=== PATIENT | male | born 1955 | race Caucasian/White ===

== ENCOUNTER 2016-06-28 09:20 | Emergency (ER) | payer OTHER ==
[~2016-06-28] VITALS: Ht 180.3 cm; Wt 100.0 kg
[2016-06-28] MEDS ORDERED: OMEPRAZOLE40 M1 PO (10:06)
[2016-06-28] MEDS ORDERED: VENLAFAXINE HCL75 M3 PO (10:06)
[2016-06-28 10:31] LABS: EOSINOPHIL (%) 1.1 % (0-5); EOSINOPHIL COUNT 0.1 K/uL (0-0.3); HEMATOCRIT 42.5 % (38.0-50.0); IMMATURE GRANULOCYTE (%) 0.6 % (0.0-0.7); INSTRUMENT ABS NEUTROPHIL CT 4.4 K/uL; LYMPHOCYTE COUNT 1.8 K/uL (1.0-2.8); MCHC 33.2 G/DL (30.0-36.0); MCV 87.4 FL (86-99); MEAN PLAT.VOLUME 10.3 uM^3 (9.0-12.4); MONOCYTE COUNT 0.8 K/uL (0-0.8); NEUTROPHIL (%) 61.9 % (45-76); NEUTROPHIL COUNT 4.4 K/uL (1.8-6.4); PLATELET COUNT 291 K/uL (156-360); RBC DIS.WIDTH-CV 12.3 % (11.8-14.6); RBC DIS.WIDTH-SD 39.6 % (39-53); RED BLOOD COUNT 4.86 M/uL (4.00-5.50); WHITE BLOOD COUNT 7.1 K/uL (4.1-10.2)
[2016-06-28 10:39] LABS: CHLORIDE 106 mEq/L (99-109); D-DIMER ELISA 0.28 mg/L FEU (< 0.57); POTASSIUM 4.6 mEq/L (3.7-5.4); PROTHROMBIN TIME 10.3 (9.2-11.2); PTT 27.5 (25-32); SODIUM 138 mEq/L (136-147)
[2016-06-28 10:41] LABS: GLUCOSE 101 mg/dL (70-99)
[2016-06-28 10:42] LABS: ANION GAP 13 MEQ/L (2-14)
[2016-06-28 10:45] LABS: GFR ESTIMATE (CALCULATED) > 59 mL/min/; UREA NITROGEN (BUN) 19 mg/dL (9-23)
[2016-06-28 10:50] LABS: TROP-I INTERPRETATION NEGATIVE; TROPONIN-I < 0.01 ng/mL (0.0-0.30)
[2016-06-28 13:21] LABS: TROP-I INTERPRETATION NEGATIVE; TROPONIN-I < 0.01 ng/mL (0.0-0.30)
[2016-06-28 14:34] VITALS: BP 136/85
== END 2016-06-28 14:35 | disposition home or self-care (01) ==
LOC: EME 09:20
PROVIDERS: Emergency Medicine
DX: R07.89 Other chest pain (principal)
CPT/HCPCS: 71010; 80048; 84484; 85025; 85379; 85610; 85730; 93005; 99281; 99285